=== PATIENT | male | born 1950 | race Caucasian/White ===

== ENCOUNTER 2017-05-26 07:05 | Day surgery (SDC) | payer BC ==
[2017-05-19 16:24] VITALS: BMI 22.5
[2017-05-26] MEDS ORDERED: PROPOFOL 20 ML ONE ×2 (07:17)
[2017-05-26] MEDS ORDERED: LIDOCAINE HCL/PF 2% SDV 5ML VIAL ONE (07:42)
[2017-05-26 08:44] VITALS: TEMP 97.8
[2017-05-26 09:08] VITALS: BP 134/63; PULSE 71
== END 2017-05-26 09:20 | disposition home or self-care (01) ==
LOC: FASU-ENDO 07:05
PROVIDERS: ATTEND Internal Medicine Gastroenterology
PROC: 0DBH8ZX Excision of Cecum, Via Natural or Artificial Opening Endoscopic, Diagnostic (ICD-10-PCS; principal; 2017-05-26 08:15)
DX: Z12.11 Encounter for screening for malignant neoplasm of colon (principal); D12.0 Benign neoplasm of cecum; K57.30 Diverticulosis of large intestine without perforation or abscess without bleeding
CPT/HCPCS: 88305-TC

== ENCOUNTER 2022-10-16 07:16 | Day surgery (SDC) | payer OTHER ==
[2022-10-09 15:53] VITALS: BMI 22.5
[2022-10-16] MEDS ORDERED: PROPOFOL 120 ML ONE (07:22)
[2022-10-16] MEDS ORDERED: LIDOCAINE HCL/PF 2% SDV 5ML VIAL ONE (07:22)
[2022-10-16 08:49] VITALS: RESP 20
[2022-10-16 08:59] VITALS: BP 122/62; PULSE 86; TEMP 98.5
== END 2022-10-16 09:20 | disposition home or self-care (01) ==
LOC: FASU-ENDO 07:16
PROVIDERS: ATTEND Internal Medicine Gastroenterology
PROC: 0DJD8ZZ Inspection of Lower Intestinal Tract, Via Natural or Artificial Opening Endoscopic (ICD-10-PCS; principal; 2022-10-16 08:21)
DX: Z12.11 Encounter for screening for malignant neoplasm of colon (principal); Z86.010 Personal history of colon polyps

== ENCOUNTER 2024-07-02 15:11 | Observation (INO) | payer OTHER ==
[2024-07-02 16:13] LABS: HEMATOCRIT 34.7 % (35.4-49); HEMOGLOBIN 11.3 G/dL (11.7-16.9); INR 1.09 (0.83-1.09); MCH 32.8 pg (25.7-33.7); MCHC 32.6 g/dl (32.0-35.9); MEAN CELL VOLUME 100.7 fl (80-96); PLATELET COUNT 220.5 10^3/uL (134-434); PROTHROMBIN TIME (PATIENT) 12.4 SEC (9.7-13.0); RBC 3.45 10^6/uL (4.00-5.60); RDW 13.4 % (11.9-15.9); WHITE BLOOD COUNT 10.7 10^3/uL (4.0-10.8)
[2024-07-02 16:21] LABS: PLATELET ESTIMATE ADEQUATE
[2024-07-02 16:23] LABS: ALBUMIN 4.3 g/dl (3.4-5.0); BILIRUBIN,TOTAL 0.6 mg/dl (0.2-1); CALCIUM 9.3 mg/dl (8.5-10.1); POTASSIUM 4.4 mmol/L (3.5-5.1); TOT PROT 6.7 g/dl (6.4-8.2)
[2024-07-02 19:08] LABS: HEMATOCRIT 31.8 % (35.4-49); HEMOGLOBIN 10.3 G/dL (11.7-16.9); MCH 32.6 pg (25.7-33.7); MCHC 32.5 g/dl (32.0-35.9); MEAN CELL VOLUME 100.2 fl (80-96); PLATELET COUNT 192.6 10^3/uL (134-434); RBC 3.17 10^6/uL (4.00-5.60); RDW 13.3 % (11.9-15.9); WHITE BLOOD COUNT 8.3 10^3/uL (4.0-10.8)
[2024-07-02] MEDS ORDERED: PANTOPRAZOLE SODIUM 40 MG VIAL ONE (19:30)
[2024-07-02] MEDS: PANTOPRAZOLE SODIUM 40 MG VIAL IVPUSH ONE (19:36)
[2024-07-02 20:02] LABS: PLATELET ESTIMATE ADEQUATE
[2024-07-02 20:10] LABS: HEMATOCRIT 30.8 % (35.4-49); HEMOGLOBIN 10.3 G/dL (11.7-16.9); MCH 33.5 pg (25.7-33.7); MCHC 33.3 g/dl (32.0-35.9); MEAN CELL VOLUME 100.8 fl (80-96); MEAN PLT VOLUME 7.8 fl (7.5-11.1); PLATELET COUNT 175.3 10^3/uL (134-434); RBC 3.06 10^6/uL (4.00-5.60); RDW 13.3 % (11.9-15.9); WHITE BLOOD COUNT 7.9 10^3/uL (4.0-10.8)
[2024-07-02 21:46] VITALS: BMI 23.3
[2024-07-02] MEDS: DEXTROSE 5%-0.45% SALINE 1,000 ML IV SCH (22:14)
[2024-07-02] MEDS: PARoxetine HCL 10 MG TABLET PO ONE (23:52)
[2024-07-03] MEDS: PANTOPRAZOLE SODIUM 40 MG VIAL IVPUSH SCH (09:23)
[2024-07-03 10:14] LABS: CALCIUM 8.6 mg/dl (8.5-10.1); CREATININE 0.8 mg/dl (0.6-1.3); POTASSIUM 4.3 mmol/L (3.5-5.1)
[2024-07-03 11:31] LABS: BASO % 0.7 % (0-2.0); EOS % 3.6 % (0-4.5); HEMATOCRIT 29.4 % (35.4-49); LYMPH % 27.9 % (8-40); MCH 32.9 pg (25.7-33.7); MCHC 34.2 g/dl (32.0-35.9); MEAN CELL VOLUME 96.1 fl (80-96); MEAN PLT VOLUME 8.8 fl (7.5-11.1); MONO % 9.2 % (3.8-10.2); NEUT % 58.6 % (42.8-82.8); PLATELET COUNT 197 10^3/uL (134-434); RBC 3.06 M/mm3 (4.00-5.60); RDW 13.1 % (11.9-15.9)
[2024-07-03 18:16] VITALS: BP 141/86; PULSE 96; RESP 14; TEMP 98.4
[2024-07-03] MEDS ORDERED: PARoxetine HCL 10 MG TABLET PO SCH (22:00)
== END 2024-07-03 19:06 | disposition home or self-care (01) ==
LOC: FER 15:11 → FM/S 20:11
PROVIDERS: ADMIT Internal Medicine; ATTEND Family Medicine
PROC: 3E033GC Introduction of Other Therapeutic Substance into Peripheral Vein, Percutaneous Approach (ICD-10-PCS; principal; 2024-07-02)
PROC: 3E0337Z Introduction of Electrolytic and Water Balance Substance into Peripheral Vein, Percutaneous Approach (ICD-10-PCS; 2024-07-02)
DX: K57.91 Diverticulosis of intestine, part unspecified, without perforation or abscess with bleeding (principal); F41.8 Other specified anxiety disorders; I10 Essential (primary) hypertension; K44.9 Diaphragmatic hernia without obstruction or gangrene
CPT/HCPCS: 36415; 74174-TC; 80048; 80053; 82272; 84484; 85025; 85027; 85610; 86850; 86900; 86901; 93005; 96361; 96374; 96376; 99285-25; G0378

== ENCOUNTER 2024-07-19 09:56 | Day surgery (SDC) | payer OTHER ==
[2024-07-14 15:24] VITALS: BMI 23.1
[2024-07-19 12:53] VITALS: TEMP 97.8
[2024-07-19 12:55] VITALS: RESP 19
[2024-07-19 13:05] VITALS: BP 105/56; PULSE 83
== END 2024-07-19 13:20 | disposition home or self-care (01) ==
LOC: FASU-ENDO 09:56
PROVIDERS: ATTEND Internal Medicine Gastroenterology
PROC: 0DB98ZX Excision of Duodenum, Via Natural or Artificial Opening Endoscopic, Diagnostic (ICD-10-PCS; 2024-07-19)
PROC: 0DB68ZX Excision of Stomach, Via Natural or Artificial Opening Endoscopic, Diagnostic (ICD-10-PCS; 2024-07-19)
PROC: 0DB48ZX Excision of Esophagogastric Junction, Via Natural or Artificial Opening Endoscopic, Diagnostic (ICD-10-PCS; 2024-07-19)
PROC: 0DBK8ZX Excision of Ascending Colon, Via Natural or Artificial Opening Endoscopic, Diagnostic (ICD-10-PCS; principal; 2024-07-19 11:52)
DX: Z12.11 Encounter for screening for malignant neoplasm of colon (principal); D12.2 Benign neoplasm of ascending colon; K57.30 Diverticulosis of large intestine without perforation or abscess without bleeding; K21.00 Gastro-esophageal reflux disease with esophagitis, without bleeding; K44.9 Diaphragmatic hernia without obstruction or gangrene; K29.50 Unspecified chronic gastritis without bleeding; K92.1 Melena; Z86.0100 Personal history of colon polyps, unspecified
CPT/HCPCS: 88305-TC; 88342-TC